=== PATIENT | male | born 1970 | race Caucasian/White ===

== ENCOUNTER → 2022-07-22 | Day surgery (SDC) | payer OTHER ==
[~2022-07-22] VITALS: Ht 175.3 cm; Wt 111.6 kg
[~2022-07-22] MED LIST: ACTOS30 MG PO; ALLOPURINOL300 MG PO; ASPIRIN EC81 MG PO; EFFEXOR XR150 MG PO; JANUVIA100 MG PO; JARDIANCE10 MG PO; LEVOTHYROXINE137 MC1 PO; LOPRESSOR50 MG PO; METFORMIN HCL1000 MG PO; MULTIVITAMIN1 EACH PO; PANTOPRAZOLE SO20 MG PO; PRINIVIL20 MG PO; VITAMIN B122500 MC1 PO; ZOCOR40 MG PO
== END | disposition home or self-care (01) ==
LOC: FAS 06:51
DX: Z12.11 Encounter for screening for malignant neoplasm of colon (principal); K63.5 Polyp of colon; K64.0 First degree hemorrhoids; E11.9 Type 2 diabetes mellitus without complications; I25.2 Old myocardial infarction; F17.200 Nicotine dependence, unspecified, uncomplicated; I10 Essential (primary) hypertension; M19.90 Unspecified osteoarthritis, unspecified site; E78.5 Hyperlipidemia, unspecified; E03.9 Hypothyroidism, unspecified; Z79.82 Long term (current) use of aspirin; Z88.5 Allergy status to narcotic agent
CPT/HCPCS: J2250; J2704; J7120